=== PATIENT | female | born 2000 | race Caucasian/White ===

== ENCOUNTER 2019-05-16 21:33 | Emergency (ER) | payer SELFPAY ==
[2019-05-16] MEDS ORDERED: LIDOCAINE 1% 10 ML VIAL INJ ONE (22:31)
--- NOTE | 2019-05-16 22:34 | ED.PDOC ---
History of Present Illness - General Chief Complaint: Skin/Abrasion/Tear Stated Complaint: ABSCESS TO RIGHT HIP Time Seen by Provider: 05/16/19 22:27 Source: patient Exam Limitations: no limitations - History of Present Illness Initial Comments: PT PRESENTS WITH COMPLAINT OF PAINFUL SWELLING TO THE RIGHT HIP FOR THE PAST 4 DAYS. PT REPORTS SUBJECTIVE FEVER AND CHILLS. Timing/Duration: getting worse Severity: moderate Location: torso - RIGHT HIP Improving Factors: nothing Worsening Factors: nothing Associated Symptoms: fever, swelling/mass/lumps Allergies/Adverse Reactions: Allergies Penicillins Allergy (Verified 05/16/19 22:38) Home Medications: Ambulatory Orders Ibuprofen 800 mg PO Q8HR PRN #30 tab 05/16/19 Sulfa/Trimeth 800/160 (Ds) Tab [Bactrim DS] 2 tablet PO BID 5 Days #20 tablet 05/16/19 Review of Systems - Review of Systems Constitutional: States: chills, fever Respiratory: Denies: cough, short of breath Cardiology: Denies: palpitations, syncope Gastrointestinal/Abdominal: Denies: constipation, diarrhea, vomiting Skin: States: see HPI, change in color, lesions Family Medical History - Family History Mother Family History: No Known Living Status: Still Living Father Family History: No Known Living Status: Still Living Physical Exam - Physical Exam General Appearance: Alert, Comfortable, No apparent distress, Well Developed, Well Groomed, Well Hydrated, Well Nourished Eyes, Ears, Nose, Throat Exam: normal ENT inspection Respiratory: no respiratory distress Gastrointestinal/Abdominal: non tender, soft Neurologic: alert, normal mood/affect, oriented x 3 Skin Exam: warm/dry, normal color Skin Problem Location: torso Skin Character: abscess - APROXIMATELY 2CM X2CM, WITH MILD FLUCTUANCE, NO DRAINAGE NOTED, erythema Lymphatic: no adenopathy Procedures - Incision and Drainage #1 Site: RIGHT HIP Procedure and Prep: betadine prep, sterile drapes applied, gauze wick placed, irrigated, pus drained Blade Size: 11 Procedure Comments: PT TOLERATED PROCEDURE WELL, APPROXIMATELY 3-4 CC PURULENT DRAINAGE OBTAINED. Departure - Departure Clinical Impression: Abscess Time of Disposition: 22:50 Disposition: Discharge to Home or Self Care Condition: Good Departure Forms: ED Discharge - Pt. Copy, Patient Portal Self Enrollment Instructions: Abscess Drainage, Percutaneous (DC) Diet: resume usual diet Activity: may shower, no tub bath Referrals: ANNA GODFREY [Primary Care Provider] - 1-2 Weeks [facility] [Provider Group] - 1-2 Weeks Prescriptions: Ibuprofen 800 mg PO Q8HR PRN #30 tab PRN Reason: Pain Sulfa/Trimeth 800/160 (Ds) Tab [Bactrim DS] 2 tablet PO BID 5 Days #20 tablet Home Medications: Ambulatory Orders Ibuprofen 800 mg PO Q8HR PRN #30 tab 05/16/19 Sulfa/Trimeth 800/160 (Ds) Tab [Bactrim DS] 2 tablet PO BID 5 Days #20 tablet 05/16/19 Additional Instructions: RETURN IN 48 HOURS FOR WOUND CHECK AND PACKING REMOVAL.
[2019-05-16 22:38] VITALS: BP 108/71; TEMP 97.1; O2SAT 99
[2019-05-16] MEDS ORDERED: IBUPROFEN 200 MG TAB PO ONE (22:41)
[2019-05-16] MEDS ORDERED: SULFA/TRIMETH 800/160 (DS) TAB 1 EA TAB PO ONE (22:41)
[2019-05-16] MEDS ORDERED: IODOFORM 1/4 INCH 1 EA BTTL TOP ONE (22:42)
== END 2019-05-16 23:01 | disposition home or self-care (01) ==
LOC: ER 21:33
DX: L02.415 Cutaneous abscess of right lower limb (principal); Z88.0 Allergy status to penicillin

== ENCOUNTER 2019-05-18 21:33 | Emergency (ER) | payer SELFPAY ==
[2019-05-18 21:42] VITALS: TEMP 97.5
--- NOTE | 2019-05-18 21:53 | ED.PDOC ---
History of Present Illness - General Chief Complaint: Wound Recheck Stated Complaint: Wound/abcess recheck Time Seen by Provider: 05/18/19 21:37 Source: patient Exam Limitations: no limitations - History of Present Illness Initial Comments: [age] y/o female S/P I & D cutaneous abscess RLQ area came for wound recheck and removal of packing. Timing/Duration: other - 3 days ago Severity: mild Location: torso - see hpi Improving Factors: nothing Worsening Factors: nothing Associated Symptoms: other - see hpi Allergies/Adverse Reactions: Allergies Penicillins Allergy (Verified 05/16/19 22:38) Home Medications: Ambulatory Orders Ibuprofen 800 mg PO Q8HR PRN #30 tab 05/16/19 Sulfa/Trimeth 800/160 (Ds) Tab [Bactrim DS] 2 tablet PO BID 5 Days #20 tablet 05/16/19 Mupirocin 2 % Oint [Bactroban Oint] 22 gm TOP BID 10 Days #1 tube 05/18/19 Review of Systems - Review of Systems Skin: States: see HPI All other Systems: Reviewed and Negative, No Change from Baseline Past Medical History (General) - Patient Medical History Hx Stroke: No Hx Congestive Heart Failure: No Hx Diabetes: No Hx MRSA: No Surgical History: no surgical history - Vaccination History Hx Tetanus, Diphtheria Vaccination: Yes Hx Influenza Vaccination: No Hx Pneumococcal Vaccination: No - Social History Hx Tobacco Use: Yes Hx Alcohol Use: Yes - Female History Patient is a Female of Child Bearing Age (10 -59 yrs old): Yes Patient : No - Triage Comment ED Triage Comment: [id number] redness and pain decreased to rt hip after I&D Family Medical History - Family History Mother Family History: No Known Living Status: Still Living Father Family History: No Known Living Status: Still Living Physical Exam - Physical Exam General Appearance: Comfortable Eyes, Ears, Nose, Throat Exam: normal ENT inspection Neck: supple Cardiovascular/Chest: normal peripheral pulses, regular rate, rhythm Respiratory: normal breath sounds Gastrointestinal/Abdominal: non tender, soft Extremity: normal inspection Neurologic: alert, oriented x 3 Skin Exam: warm/dry Skin Problem Location: torso Skin Character: abscess - s/p I&D Progress - Progress Progress: 05/18/19 21:54 Vital Signs - 8 hr 05/18/19 21:39 Temperature 97.5 F L Pulse Rate [ 78 Right] Respiratory 16 Rate Blood Pressure 110/72 [Left Arm] O2 Sat by Pulse 100 Oximetry 05/18/19 21:57 removal of packing done;wound care done Departure - Departure Clinical Impression: Encounter for wound re-check Time of Disposition: 21:55 Disposition: Discharge to Home or Self Care Condition: Good Departure Forms: ED Discharge - Pt. Copy, Patient Portal Self Enrollment Instructions: Abscess Incision and Drainage (DC) Referrals: ANNA GODFREY [Primary Care Provider] - 1-2 Weeks Prescriptions: Mupirocin 2 % Oint [Bactroban Oint] 22 gm TOP BID 10 Days #1 tube Home Medications: Ambulatory Orders Ibuprofen 800 mg PO Q8HR PRN #30 tab 05/16/19 Sulfa/Trimeth 800/160 (Ds) Tab [Bactrim DS] 2 tablet PO BID 5 Days #20 tablet 05/16/19 Mupirocin 2 % Oint [Bactroban Oint] 22 gm TOP BID 10 Days #1 tube 05/18/19 Additional Instructions: Continue with oral antibiotics as directed
[2019-05-18 22:07] VITALS: BP 123/76; O2SAT 98
[2019-05-19] MEDS ORDERED: MUPIROCIN 2 % OINT 22 GM TUBE TOP SCH (09:00)
== END 2019-05-18 22:05 | disposition home or self-care (01) ==
LOC: ER 21:33
DX: Z48.01 Encounter for change or removal of surgical wound dressing (principal); L02.211 Cutaneous abscess of abdominal wall; Z88.0 Allergy status to penicillin; Z87.891 Personal history of nicotine dependence